=== PATIENT | female | born 1980 | race African-American/Black ===

== ENCOUNTER 2017-06-10 17:08 | Emergency (ER) | payer BC ==
[2017-06-10 17:36] VITALS: BP 138/66
[2017-06-10] MEDS ORDERED: GUAIFENESIN 600 MG TABLET.SA PO ONE (18:32)
[2017-06-10] MEDS ORDERED: IBUPROFEN 800 MG TABLET PO ONE (18:32)
[2017-06-10] MEDS ORDERED: LORATADINE 10 MG TABLET PO ONE (18:32)
[2017-06-10] MEDS ORDERED: PSEUDOEPHEDRINE HCL 30 MG TABLET PO ONE (18:32)
--- NOTE | 2017-06-10 18:38 | ER Document Report ---
ED Flu Like - General Chief Complaint: Flu Symptoms Stated Complaint: CHILLS Time Seen by Provider: 06/10/17 18:10 Mode of Arrival: Ambulatory Information source: Patient Notes: 37-year-old female presents to ED for complaint of cough cold congestion and ear pain since this morning. She states her sons been sick since Sunday. She is alert oriented no acute distress. Speaking in full sentences. Respirations regular and unlabored. TRAVEL OUTSIDE OF THE [place] IN LAST 30 DAYS: No - HPI Onset: This morning Quality of pain: Achy Severity: Moderate Pain Level: 2 Associated symptoms: Body/muscle aches, Chills, Nonproductive cough, Earache, Rhinnorhea, Sore throat Similar symptoms previously: Yes Recently seen / treated by doctor: No - Related Data Allergies/Adverse Reactions: No Known Allergies Allergy (Verified 06/10/17 17:35) Past Medical History - General Information source: Patient - Social History Smoking Status: Current Every Day Smoker Cigarette use (# per day): Yes - 4 cigarettes a day Chew tobacco use (# tins/day): No Smoking Education Provided: Yes - Less than 2 minutes Frequency of alcohol use: Occasional Drug Abuse: None Occupation: Patient financial services Lives with: Family Family History: Reviewed & Not Pertinent Patient has suicidal ideation: No Patient has homicidal ideation: No - Past Medical History Cardiac Medical History: Reports: None Pulmonary Medical History: Reports: None EENT Medical History: Reports: None Neurological Medical History: Reports: None Endocrine Medical History: Reports: None Renal/ Medical History: Reports: None Malignancy Medical History: Reports: None GI Medical History: Reports: None Musculoskeltal Medical History: Reports None Skin Medical History: Reports None Psychiatric Medical History: Reports: None Traumatic Medical History: Reports: None Infectious Medical History: Reports: None Past Surgical History: Reports: Hx Gynecologic Surgery - laperoscopy x2. - Immunizations Hx Diphtheria, Pertussis, Tetanus Vaccination: Yes Review of Systems - Review of Systems Constitutional: Chills, Recent illness EENT: Ear pain, Nose discharge, Sinus discharge, Throat pain Cardiovascular: No symptoms reported Respiratory: Cough Gastrointestinal: No symptoms reported Genitourinary: No symptoms reported Female Genitourinary: No symptoms reported Musculoskeletal: No symptoms reported Skin: No symptoms reported Hematologic/Lymphatic: No symptoms reported Neurological/Psychological: No symptoms reported -: Yes All other systems reviewed and negative Physical Exam - Vital signs Vitals: Temp Pulse Resp BP Pulse Ox 97.6 F 100 24 H 138/66 H 98 06/10/17 17:35 06/10/17 17:35 06/10/17 17:35 06/10/17 17:35 06/10/17 17:35 Interpretation: Normal - General General appearance: Appears well, Alert - HEENT Head: Normocephalic, Atraumatic Eyes: Normal Pupils: PERRL Ears: Normal External canal: Normal Tympanic membrane: Serous effusion. No: Hemotympanum, Injected, Loss of landmarks, Perforation, Purulent effusion, Retracted Sinus: Normal Nasal: Purulent discharge, Swelling Mouth/Lips: Normal Pharynx: Post nasal drainage Neck: Anterior cervical chain - Respiratory Respiratory status: No respiratory distress. No: Respiratory distress Chest status: Nontender. No: Tender Breath sounds: Nonproductive cough. No: Rales, Rhonchi, Stridor, Wheezing Chest palpation: Normal - Cardiovascular Rhythm: Regular Heart sounds: Normal auscultation Murmur: No - Abdominal Inspection: Normal Distension: No distension Bowel sounds: Normal Tenderness: Nontender Organomegaly: No organomegaly - Back Back: Normal, Nontender - Extremities General upper extremity: Normal inspection, Nontender, Normal color, Normal ROM , Normal temperature General lower extremity: Normal inspection, Nontender, Normal color, Normal ROM , Normal temperature, Normal weight bearing. No: Renetta's sign - Neurological Neuro grossly intact: Yes Cognition: Normal Orientation: AAOx4 [place] Coma Scale Eye Opening: Spontaneous [place] Coma Scale Verbal: Oriented [place] Coma Scale Motor: Obeys Commands Ly[place] Coma Scale Total: 15 Speech: Normal Motor strength normal: LUE, RUE, LLE, RLE Sensory: Normal - Psychological Associated symptoms: Normal affect, Normal mood - Skin Skin Temperature: Warm Skin Moisture: Dry Skin Color: Normal Course - Re-evaluation Re-evalutation: 06/10/17 18:40 Assessment consistent with upper respiratory infection. She did not have any signs or symptoms of a cold she does have some serous fluid behind the ear drum but no signs of otitis media. Will treat with Claritin and Sudafed Mucinex and ibuprofen and have follow-up with her primary doctor. - Vital Signs Vital signs: Temp Pulse Resp BP Pulse Ox 97.6 F 100 24 H 138/66 H 98 06/10/17 17:35 06/10/17 17:35 06/10/17 17:35 06/10/17 17:35 06/10/17 17:35 Discharge - Discharge Clinical Impression: Sore throat (viral), Otalgia of both ears URI (upper respiratory infection) Qualifiers: URI type: unspecified URI Qualified Code(s): J06.9 - Acute upper respiratory infection, unspecified Condition: Stable Disposition: HOME, SELF-CARE Instructions: Family Physicians / Practices Additional Instructions: SORE THROAT: Sore throats may be caused by viruses, bacteria, or fungi. Most are due to a virus, and must get better on their own. Bacterial sore throats, particularly those due to "strep," need treatment with antibiotics. If an antibiotic is prescribed, be sure to take the medication for a full 10 days. Failure to take the antibiotic can result in complications such as rheumatic fever. Sometimes, an injection of antibiotics is given instead of pills or liquid. This single "shot" is equal in effectiveness to the oral medication. To relieve symptoms, take acetaminophen for pain. Sip clear liquids frequently, or eat popsicles or ice chips. Anesthetic sprays or lozenges may help. Make sure the air in the room is not too dry. Avoid using decongestants or antihistamines. Call the doctor if there is no improvement in two days, or if you have difficulty breathing, increasing throat pain, high fever, rash, or frequent vomiting. UPPER RESPIRATORY ILLNESS: You have a viral infection of the respiratory passages -- a "cold." This common infection causes nasal congestion, drainage, and often sore throat and cough. It is highly contagious. The disease usually lasts about 10 to 14 days. There is no "cure" for the viral infection -- it must run its course. If there is a complication, such as bacterial infection in the nose, sinuses, middle ear, or bronchial tubes, antibiotics may be required. The antibiotics won't affect the virus. Drink plenty of fluids. A humidifier may help. An expectorant medication or decongestant may make you more comfortable. Use acetaminophen or ibuprofen for fever or aches. See the doctor if fever persists over two days, if there is any significant worsening of your symptoms, or if you simply fail to improve as expected. DECONGESTANT MEDICATION: A decongestant medicine has been suggested. This type of medicine is helpful in treating a bad cold or sinus condition, as well as in treatment of the nasal congestion of hay fever. It is not of much benefit for lung infections. Decongestant medicines are related to stimulants. They can cause an increase in blood pressure and heart rate. Persons with heart disease and high blood pressure should not take decongestants without discussing this with the physician. If you develop palpitations, chest pain, headache, or tremors, stop the medicine and consult your physician. USE OF ACETAMINOPHEN (Tylenol): Acetaminophen may be taken for pain relief or fever control. It's much safer than aspirin, offering a wider range of "safe" dosages. It is safe during . Some brand names are Tylenol, Panadol, Datril, Anacin 3, Tempra, and Liquiprin. Acetaminophen can be repeated every four hours. The following are maximum recommended dosages: >89 pounds or adults 650 mg to 900 mg Acetaminophen can be repeated every four hours. Maximum dose not to exceed 4000 mg a day. SMOKING: If you smoke, you should stop smoking. The tar and chemicals in cigarette smoke are harmful. Smoking has been shown to cause: emphysema chronic bronchitis lung cancer mouth and throat cancer stomach and pancreas cancer premature aging defects In addition, smoking increases ear and lung infections in children of smokers. FOLLOW-UP CARE: If you have been referred to a physician for follow-up care, call the physician s office for an appointment as you were instructed or within the next two days. If you experience worsening or a significant change in your symptoms, notify the physician immediately or return to the Emergency Department at any time for re-evaluation. Forms: Elevated Blood Pressure, Smoking Cessation Education, Return to Work
== END 2017-06-10 18:51 | disposition home or self-care (01) ==
LOC: ER 17:08
DX: J06.9 Acute upper respiratory infection, unspecified (principal); J02.9 Acute pharyngitis, unspecified; H92.03 Otalgia, bilateral; R05 Cough; R09.81 Nasal congestion; F17.210 Nicotine dependence, cigarettes, uncomplicated
CPT/HCPCS: 99283

== ENCOUNTER 2017-09-21 19:30 | Emergency (ER) | payer BC ==
[2017-09-21 22:07] LABS: ABSOLUTE BASOPHILS # (AUTO) 0.1 10^3/uL (0.0-0.2); ABSOLUTE EOSINOPHILS # (AUTO) 0.4 10^3/uL (0.0-0.6); ABSOLUTE LYMPHOCYTES (AUTO) 3.7 10^3/uL (0.5-4.7); ABSOLUTE MONOCYTES (AUTO) 0.5 10^3/uL (0.1-1.4); ABSOLUTE NEUT (AUTO) 7.6 10^3/uL (1.7-8.2); BASOPHILS % (AUTO) 0.5 % (0-2); HEMATOCRIT 42.5 % (36.0-47.0); HEMOGLOBIN 14.4 g/dL (12.0-15.5); LYMPHOCYTES % (AUTO) 30.2 % (13-45); MEAN CORPUSCULAR HEMOGLOBIN 30.8 pg (27.0-33.4); MEAN CORPUSCULAR HGB CONC 33.8 g/dL (32.0-36.0); MEAN CORPUSCULAR VOLUME 91 fl (80-97); MONOCYTES % (AUTO) 4.4 % (3-13); PLATELET COUNT 401 10^3/uL (150-450); RED BLOOD COUNT 4.67 10^6/uL (3.72-5.28); RED CELL DISTRIBUTION WIDTH 13.6 % (11.5-14.0); SEGMENTED NEUTROPHILS % (AUTO) 61.9 % (42-78); TOTAL CELLS COUNTED % (AUTO) 100 %; WHITE BLOOD COUNT 12.3 10^3/uL (4.0-10.5)
[2017-09-21 22:27] LABS: ALANINE AMINOTRANSFERASE 29 U/L (9-52); ALBUMIN 4.7 g/dL (3.5-5.0); ALKALINE PHOSPHATASE 51 U/L (38-126); ANION GAP 14 (5-19); ASPARTATE AMINO TRANSFERASE 16 U/L (14-36); BILIRUBIN,DIRECT 0.1 mg/dL (0.0-0.4); BILIRUBIN,TOTAL 0.5 mg/dL (0.2-1.3); BLOOD UREA NITROGEN 7 mg/dL (7-20); CALCIUM 10.1 mg/dL (8.4-10.2); CARBON DIOXIDE 25 mmol/L (22-30); CHLORIDE 102 mmol/L (98-107); CREATINE KINASE 100 U/L (30-135); GLUCOSE 142 mg/dL (75-110); POTASSIUM 3.9 mmol/L (3.6-5.0); SODIUM 141.3 mmol/L (137-145); TOTAL PROTEIN 7.5 g/dL (6.3-8.2)
[2017-09-21 22:31] LABS: CREATINE KINASE MB 0.45 ng/mL (<4.55)
[2017-09-21] MEDS ORDERED: PROMETHAZINE HCL INJ 25 MG/1 ML VIAL IV ONE (22:34)
[2017-09-21] MEDS ORDERED: DIPHENHYDRAMINE HCL 50 MG/ML VIAL IV ONE (22:34)
[2017-09-21 22:35] LABS: TROPONIN I < 0.012 ng/mL
--- NOTE | 2017-09-21 22:35 | ER Document Report ---
ED General - General Chief Complaint: Headache Stated Complaint: HEADACHE Time Seen by Provider: 09/21/17 22:02 Mode of Arrival: Ambulatory Information source: Patient, Outside Facility Records - Information from urgent care reviewed Notes: 37-year-old female history of hypertension who used to be on hydrochlorothiazide but was taken off by her primary care physician due to her blood pressures improving presents with complaints of high blood pressure headache. Patient notes the headaches been ongoing now for approximately 3 days was gradual in onset. She denies any neurological deficits denies any numbness weakness. States this is not the worst headache she has ever had, patient is on phentermine for weight loss TRAVEL OUTSIDE OF THE [place] IN LAST 30 DAYS: No - HPI Onset: Other Onset/Duration: Persistent Quality of pain: Achy Severity: Mild Pain Level: 1 Associated symptoms: Headache Exacerbated by: Denies Relieved by: Denies Similar symptoms previously: Yes Recently seen / treated by doctor: Yes - Related Data Allergies/Adverse Reactions: No Known Allergies Allergy (Verified 09/21/17 19:33) Past Medical History - Social History Smoking Status: Current Every Day Smoker Cigarette use (# per day): Yes Chew tobacco use (# tins/day): No Smoking Education Provided: No Frequency of alcohol use: None Drug Abuse: None Family History: Reviewed & Not Pertinent Patient has suicidal ideation: No Patient has homicidal ideation: No - Past Medical History Cardiac Medical History: Reports: Hx Hypertension Renal/ Medical History: Denies: Hx Peritoneal Dialysis Past Surgical History: Reports: Hx Gynecologic Surgery - laperoscopy x2. - Immunizations Hx Diphtheria, Pertussis, Tetanus Vaccination: Yes Review of Systems - Review of Systems Notes: REVIEW OF SYSTEMS: CONSTITUTIONAL : Denies fever, chills, or sweats. Denies recent illness. EENT: Denies eye, ear, throat, or mouth pain or symptoms. Denies nasal or sinus congestion or discharge. Denies throat, tongue, or mouth swelling or difficulty swallowing. CARDIOVASCULAR: Denies chest pain. Denies palpitations or racing or irregular heart beat. Denies ankle edema. RESPIRATORY: Denies cough, cold, or chest congestion. Denies shortness of breath, difficulty breathing, or wheezing. GASTROINTESTINAL: Denies abdominal pain or distention. Denies nausea, vomiting , or diarrhea. Denies blood in vomitus, stools, or per rectum. Denies black, tarry stools. Denies constipation. GENITOURINARY: Denies difficulty urinating, painful urination, burning, frequency, blood in urine, or discharge. FEMALE GENITOURINARY: Denies vaginal bleeding, heavy or abnormal periods, irregular periods. Denies vaginal discharge or odor. MUSCULOSKELETAL: Denies back or neck pain or stiffness. Denies joint pain or swelling. SKIN: Denies rash, lesions or sores. HEMATOLOGIC : Denies easy bruising or bleeding. LYMPHATIC: Denies swollen, enlarged glands. NEUROLOGICAL: Admits to headache PSYCHIATRIC: Denies anxiety or stress. Denies depression, suicidal ideation, or homicidal ideation. ALL OTHER SYSTEMS REVIEWED AND NEGATIVE. PHYSICAL EXAMINATION: GENERAL: Well-appearing, well-nourished and in no acute distress. HEAD: Atraumatic, normocephalic. EYES: Pupils equal round and reactive to light, extraocular movements intact, conjunctiva are normal. ENT: Nares patent, oropharynx clear without exudates. Moist mucous membranes. NECK: Normal range of motion, supple without lymphadenopathy LUNGS: Breath sounds clear to auscultation bilaterally and equal. No wheezes rales or rhonchi. HEART: Regular rate and rhythm without murmurs ABDOMEN: Soft, nontender, nondistended abdomen. No guarding, no rebound. No masses appreciated. Female : deferred Musculoskeletal: Normal range of motion, no pitting or edema. No cyanosis. NEUROLOGICAL: Cranial nerves grossly intact. Normal speech, normal gait. Normal sensory, motor exams PSYCH: Normal mood, normal affect. SKIN: Warm, Dry, normal turgor, no rashes or lesions noted. Dictation was performed using [employer] voice recognition software Physical Exam - Vital signs Vitals: BP 170/94 H 09/21/17 19:45 Course - Re-evaluation Re-evalutation: 09/22/17 00:35 Patient's physical examination is quite benign, lab work notes mild white count elevation which I believe is secondary to pain, patient was to be treated for headache and symptoms resolved, her blood pressure is much lower here than it was at urgent care where he was noted to be 160s over 120s, she looks well is in no distress, I will put her back on her blood pressure medication at her request, patient is otherwise told to follow-up with primary care physician for reevaluation and to stop taking the phentermine as this is the probable cause of her high blood pressure After performing a Medical Screening Examination, I estimate there is LOW risk for ACUTE GLAUCOMA, TEMPORAL ARTERITIS, MENINGITIS, INCRANIAL HEMORRHAGE, or ISCHEMIC STROKE thus I consider the discharge disposition reasonable. I have reevaluated this patient multiple times and no significant life threatening changes are noted. The patient and I have discussed the diagnosis and risks, and we agree with discharging home with close follow-up with the understanding that symptoms and presentations can change. We also discussed returning to the Emergency Department immediately if new or worsening symptoms occur. We have discussed the symptoms which are most concerning (e.g., changing or worsening symptoms, new numbness or weakness, vomiting, fever) that necessitate immediate return. - Vital Signs Vital signs: Temp Pulse Resp BP Pulse Ox 97.6 F 74 17 133/77 H 100 09/21/17 22:50 09/21/17 22:50 09/21/17 22:50 09/21/17 22:50 09/21/17 22:50 - Laboratory Result Diagrams: 09/21/17 21:54 09/21/17 21:54 Laboratory results interpreted by me: 09/21/17 09/21/17 21:54 21:54 WBC 12.3 H Glucose 142 H Discharge - Discharge Clinical Impression: Hypertension Qualifiers: Hypertension type: essential hypertension Qualified Code(s): I10 - Essential ( primary) hypertension Headache Qualifiers: Headache type: unspecified Headache chronicity pattern: acute headache Intractability: not intractable Qualified Code(s): R51 - Headache Condition: Stable Disposition: HOME, SELF-CARE Instructions: Headache ([facility]) Additional Instructions: Follow up with your physician tomorrow for further care or return to the ED IMMEDIATELY if symptoms worsen or new concerns occur. If you cannot afford to follow up with your primary care physician a list of low cost clinics have been provided at the end of your discharge papers as well. Prescriptions: Hydrochlorothiazide 12.5 mg PO DAILY #30 capsule Referrals: LINDA IBARRA MD [Primary Care Provider] - Follow up as needed
[2017-09-21 23:10] VITALS: BP 133/77
--- NOTE | 2017-09-22 09:42 | EKG REPORT ---
SEVERITY:- NORMAL ECG - SINUS RHYTHM : Confirmed by: Helen Nieves 22-Sep-2017 09:41:31
== END 2017-09-21 22:50 | disposition home or self-care (01) ==
LOC: ER 19:30
DX: R51 Headache (principal); I10 Essential (primary) hypertension; F17.210 Nicotine dependence, cigarettes, uncomplicated
CPT/HCPCS: 93005; 99284; 96374; 36415; 82553; 82550; 85025; 80053; 84484; 93010; J2550

== ENCOUNTER 2018-11-25 20:49 | Emergency (ER) | payer SELFPAY ==
--- NOTE | 2018-11-26 00:43 | RADIOLOGY REPORT (SQ) ---
EXAM DESCRIPTION: XR HAND 3 OR MORE VIEWS COMPLETED DATE/TME: 11/25/2018 23:56 CLINICAL HISTORY: 38 years, Female, pain COMPARISON: None. NUMBER OF VIEWS: 3 TECHNIQUE: 3 view left hand LIMITATIONS: None. FINDINGS: Negative for acute fracture or dislocation. Probable old injury associated with the ulnar styloid. Soft tissues are unremarkable IMPRESSION: No acute osseous abnormality copyright 2010 [employer]- All Rights Reserved
--- NOTE | 2018-11-26 01:25 | ER Document Report ---
ED General - General Chief Complaint: Hand Injury Stated Complaint: LEFT HAND SWOLLEN, POSSIBLY BROKEN Time Seen by Provider: 11/26/18 00:17 Primary Care Provider: LINDA IBARRA MD [Primary Care Provider] - Follow up as needed Notes: Patient is a 38-year-old female without chronic medical problems who presents after a fall onto outstretched hands. Patient states that she was "messing around" states that she fell onto both of her palms but much harder onto the left. States that since that time she has had increasing swelling diffusely to the left hand as well as a severe, throbbing, constant pain to the thenar eminence of the left hand. Touching the area worsens the pain. Nothing improves the pain. She denies any history of similar injury in the past. She is left-hand dominant. She has not seen her primary doctor regarding today's concerns. She denies any injury or complaint of pain to any other location. TRAVEL OUTSIDE OF THE [place] IN LAST 30 DAYS: No - Related Data Allergies/Adverse Reactions: No Known Allergies Allergy (Verified 09/21/17 19:33) Past Medical History - General Information source: Patient - Social History Smoking Status: Never Smoker Frequency of alcohol use: None Drug Abuse: None Lives with: Friend Family History: Reviewed & Not Pertinent - Past Medical History Cardiac Medical History: Reports: Hx Hypertension Renal/ Medical History: Denies: Hx Peritoneal Dialysis Past Surgical History: Reports: Hx Gynecologic Surgery - laperoscopy x2. - Immunizations Hx Diphtheria, Pertussis, Tetanus Vaccination: Yes Review of Systems - Review of Systems Notes: Constitutional: Negative for fever. Eyes: Negative for visual changes. ENT: Negative for facial injury Cardiovascular: Negative for chest injury. Respiratory: Negative for shortness of breath. Gastrointestinal: Negative for abdominal injury. Genitourinary: Negative for genital injury Musculoskeletal: Positive for left hand injury Skin: Negative for laceration/abrasions. Neurological: Negative for head injury. Physical Exam - Vital signs Vitals: Temp Pulse Resp BP Pulse Ox 98.0 F 91 20 144/82 H 97 11/25/18 20:52 11/25/18 20:52 11/25/18 20:52 11/25/18 20:52 11/25/18 20:52 Interpretation: Hypertensive Notes: PHYSICAL EXAMINATION: GENERAL: Well-appearing, well-nourished and in no acute distress. HEAD: Atraumatic, normocephalic. EYES: sclera anicteric, conjunctiva are normal. ENT: Moist mucous membranes. NECK: Normal range of motion LUNGS: Normal work of breathing HEART: 2+ radial pulses bilaterally, capillary refill less than 1 second in all digits of the left hand. EXTREMITIES: no pitting or edema. No cyanosis. RMU motor and sensory dissipation is intact in the left hand. Full flexion extension at the DIP, PIP and MCP of all digits of the left hand. No pain on palpation of the anatomic snuffbox. NEUROLOGICAL: No focal neurological deficits. Moves all extremities spontaneously and on command. PSYCH: Normal mood, normal affect. SKIN: Warm, Dry, normal turgor, traumatic ecchymosis over the thenar eminence on the left with diffuse swelling of the left hand Course - Re-evaluation Re-evalutation: 11/26/18 01:20 Patient presents with swelling and pain to the hand on the left diffusely but more prominent over the thenar eminence after falling onto an outstretched hand. On exam there is diffuse bruising over the thenar eminence and mild swelling of the hand diffusely. RMU motor and sensory distribution are intact. 2+ capillary refill in all digits. Full flexion extension at the DIP, MCP and PIP of all digits. She does not have tenderness over the anatomic snuffbox. X-rays negative for any evidence of acute fracture. Most consistent with a traumatic hematoma with associated soft tissue swelling. At this time will discharge with return precautions and follow-up recommendations. Verbal discharge instructions given a the bedside and opportunity for questions given. Medication warnings reviewed. Patient is in agreement with this plan and has verbalized understanding of return precautions and the need for primary care follow-up in the next 24-72 hours. - Vital Signs Vital signs: Temp Pulse Resp BP Pulse Ox 98.0 F 91 20 144/82 H 97 11/25/18 20:52 11/25/18 20:52 11/25/18 20:52 11/25/18 20:52 11/25/18 20:52 - Diagnostic Test Radiology reviewed: Image reviewed, Reports reviewed Radiology results interpreted by me: 11/26/18 01:21 Left hand x-ray: No acute fracture or dislocation Discharge - Discharge Clinical Impression: Injury of left hand Qualifiers: Encounter type: initial encounter Qualified Code(s): S69.92XA - Unspecified injury of left wrist, hand and finger(s), initial encounter Traumatic ecchymosis of left hand Qualifiers: Encounter type: initial encounter Qualified Code(s): S60.222A - Contusion of left hand, initial encounter Condition: Good Disposition: HOME, SELF-CARE Additional Instructions: Your x-ray does not show any acute fracture today. You likely have a soft tissue injury. For your pain: Take ibuprofen 600 mg and acetaminophen 1000 mg every 6 hours together as needed for pain. Continue to apply ice to the area is much your able. Please follow-up with your primary care physician if you do not have improving your symptoms in the next 1-2 weeks. Please return immediately if you develop weakness, numbness, spreading redness from the area, or any other symptoms that are concerning to you. Referrals: LINDA IBARRA MD [Primary Care Provider] - Follow up as needed
[2018-11-26 01:37] VITALS: BP 138/72
== END 2018-11-26 01:36 | disposition home or self-care (01) ==
LOC: ER 20:49
DX: S60.222A Contusion of left hand, initial encounter (principal); M79.642 Pain in left hand; W19.XXXA Unspecified fall, initial encounter; I10 Essential (primary) hypertension
CPT/HCPCS: 99283

== ENCOUNTER 2020-01-11 01:50 | Emergency (ER) | payer SELFPAY | END 2020-01-11 02:09 | disposition left against medical advice (07) | LOC: ER 01:50 | DX: Z53.21 Procedure and treatment not carried out due to patient leaving prior to being seen by health care provider (principal); S01.511A Laceration without foreign body of lip, initial encounter; X58.XXXA Exposure to other specified factors, initial encounter ==

== ENCOUNTER 2020-01-11 09:14 | Emergency (ER) | payer BC, MEDICAID ==
[2020-01-11 09:19] VITALS: BP 130/77
[2020-01-11] MEDS ORDERED: LIDOCAINE 1%/EPINEPHRINE INJ 20 ML VIAL INJ ONE (10:18)
[2020-01-11] MEDS ORDERED: AMOXICILLIN TRIHYDRATE 500 MG CAPSULE PO ONE (11:33)
--- NOTE | 2020-01-13 10:33 | ER Document Report ---
Entered by JAYDE DELVALLE SCRIBE 01/11/20 1018 Acting as scribe for:LAUREL DEWEY MD ED General - General Chief Complaint: Laceration Stated Complaint: LIP PAIN Time Seen by Provider: 01/11/20 10:09 Primary Care Provider: LINDA IBARRA MD [Primary Care Provider] - Follow up as needed Information source: Patient Notes: This 39 year old female patient presents to the emergency department today with a laceration on her lower lip. Patient states she slipped this morning on floor that was wet and bumped her chin causing a laceration on the inside of her lip. Patient states there is pain and she visited the ED this morning but left. Patient states her last menstrual period began x15 days ago and ended x9 days ago. TRAVEL OUTSIDE OF THE [place] IN LAST 30 DAYS: No - Related Data Allergies/Adverse Reactions: No Known Allergies Allergy (Verified 01/11/20 09:49) Past Medical History - General Information source: Patient - Social History Smoking Status: Current Every Day Smoker Cigarette use (# per day): Yes - 4 Chew tobacco use (# tins/day): No Frequency of alcohol use: Occasional Drug Abuse: None Family History: Reviewed & Not Pertinent - Past Medical History Cardiac Medical History: Reports: Hx Hypertension Past Surgical History: Reports: Hx Gynecologic Surgery - laperoscopy x2. - Immunizations Hx Diphtheria, Pertussis, Tetanus Vaccination: Yes Review of Systems - Review of Systems Constitutional: No symptoms reported EENT: See HPI, Other - Laceration on lower lip Cardiovascular: No symptoms reported Respiratory: No symptoms reported Gastrointestinal: No symptoms reported Genitourinary: No symptoms reported Female Genitourinary: See HPI, Last menstrual period - x15 days ago Musculoskeletal: No symptoms reported Skin: No symptoms reported Hematologic/Lymphatic: No symptoms reported Neurological/Psychological: No symptoms reported -: Yes All other systems reviewed and negative Physical Exam - Vital signs Vitals: Temp Pulse Resp BP Pulse Ox 98.4 F 94 16 130/77 H 98 01/11/20 09:18 01/11/20 09:18 01/11/20 09:18 01/11/20 09:18 01/11/20 09:18 - General General appearance: Appears well, Alert - HEENT Head: Normocephalic Eyes: Normal Pupils: PERRL Notes: Laceration of the lower lip. - Respiratory Respiratory status: No respiratory distress Chest status: Nontender Breath sounds: Normal Chest palpation: Normal - Cardiovascular Rhythm: Regular Heart sounds: Normal auscultation Murmur: No - Abdominal Inspection: Obese Distension: No distension Bowel sounds: Normal Tenderness: Nontender - Extremities General upper extremity: Normal inspection. No: Edema General lower extremity: Normal inspection. No: Edema - Neurological Neuro grossly intact: Yes Cognition: Normal Orientation: AAOx4 Speech: Normal - Psychological Associated symptoms: Normal affect, Normal mood - Skin Skin Temperature: Warm Skin Moisture: Dry Skin Color: Normal Course - Vital Signs Vital signs: Temp Pulse Resp BP Pulse Ox 98.4 F 94 16 130/77 H 98 01/11/20 09:18 01/11/20 09:18 01/11/20 09:18 01/11/20 09:18 01/11/20 09:18 Discharge - Discharge Clinical Impression: Lip laceration Qualifiers: Encounter type: initial encounter Qualified Code(s): S01.511A - Laceration without foreign body of lip, initial encounter Condition: Stable Disposition: HOME, SELF-CARE Additional Instructions: Crush Laceration: You have a crushing laceration of the lower lip. The bruised and swollen tissue will take time to heal. The wound was closed with an absorbable suture so the stitches do not need to be removed. Take the antibiotics as prescribed. Take Tylenol and ibuprofen for pain as needed. Use ice packs to help reduce the swelling for the next 2 days. Keep the area clean and limit crusting by applying a small amount of Vaseline to the wound a few times daily. RETURN TO THE EMERGENCY ROOM IF ANY NEW OR WORSENING SYMPTOMS. Prescriptions: Amoxicillin Trihydrate [Amoxil 500 mg Capsule] 500 mg PO TID #15 cap Forms: Return to Work Referrals: LINDA IBARRA MD [Primary Care Provider] - Follow up as needed I personally performed the services described in the documentation, reviewed and edited the documentation which was dictated to the scribe in my presence, and it accurately records my words and actions.
== END 2020-01-11 11:47 | disposition home or self-care (01) ==
LOC: ER 09:14
PROC: 0CQ1XZZ Repair Lower Lip, External Approach (ICD-10-PCS; principal; 2020-01-11)
DX: S01.511A Laceration without foreign body of lip, initial encounter (principal); W01.0XXA Fall on same level from slipping, tripping and stumbling without subsequent striking against object, initial encounter; F17.210 Nicotine dependence, cigarettes, uncomplicated; I10 Essential (primary) hypertension
CPT/HCPCS: 99406; 99282; 12011; J3490